=== PATIENT | female | born 1960 | race Caucasian/White ===

== ENCOUNTER → 2016-07-17 07:06 | Day surgery (SDC) | payer OTHER ==
--- NOTE | 2016-07-15 18:21 | HP ---
PREOPERATIVE HISTORY AND PHYSICAL: DATE OF ADMISSION: 07/17/16 This patient is scheduled for same-day surgery admission by Dr. Oliva on , 07/17/16. DATE OF PREOPERATIVE HISTORY AND PHYSICAL EXAMINATION: 07/15/16. ATTENDING SURGEON: Dr. Kin Oliva (dictated by Dominique Araya NP). CHIEF COMPLAINT: Left breast cancer. HISTORY OF PRESENT ILLNESS: The patient is a 55-year-old female referred to Dr. Oliva from Dr. Jack with an abnormal left mammogram that prompted a stereotactic biopsy that revealed invasive ductal adenocarcinoma. The patient denies any family history of breast cancer in her first-degree relatives, there is no family history of ovarian cancer, the patient has not had previous breast disease or breast biopsies. She is not on hormonal therapy; she denies any nipple discharge or pain in breast. Dr. Oliva examined the patient and discussed the findings on the pathology and discussed with her and her daughter the nature of breast cancer and the patient has also been referred to Dr. Sharee Sotomayor for consultation. Dr. Oliva has recommended mammo-guide needle localization, wide excision of the left breast cancer and sentinel lymph node biopsy as a same-day surgery procedure. Dr. Oliva described the nature of the surgical procedure, the rationale for the procedure, the relevant risks, benefits, and alternatives, and today, I reviewed the typical same-day hospitalization as well as the postoperative care and recovery. The patient has had a chance to ask questions and stated that she understands the information and is satisfied with the answers given to her questions. She will sign surgical consent on the day of surgery. PAST MEDICAL HISTORY: Generally healthy. No acute or chronic conditions. PAST SURGICAL HISTORY: Repair of bilateral rotator cuffs; laparoscopic appendectomy. OB HISTORY: 1, para 1. Last menstrual period started May 2016 and her periods are irregular. MEDICATIONS: 1. Omeprazole 10 mg p.r.n. acid indigestion. 2. Multivitamin occasionally. 3. Vitamin D3 2000 International Units daily. 4. Ibuprofen over the counter p.r.n. ALLERGIES: No known drug allergies, food, or latex allergies. FAMILY HISTORY: No first-degree relatives with breast cancer. No family history of ovarian cancer. Father had a history of bladder cancer. No known anesthesia reactions, bleeding tendencies, or clotting disorders. 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 She denies the use of other substances. REVIEW OF SYSTEMS: She denies any cardiac conditions or complaints, denies any history of deep vein thrombosis or pulmonary embolism. She denies any respiratory conditions or complaints other than seasonal allergies. She denies any previous anesthesia complications. She denies any gastrointestinal conditions or complaints. She denies any dysuria. She denies any bleeding tendencies and has never received a blood transfusion. PHYSICAL EXAMINATION GENERAL SURVEY: The patient is a 55-year-old female, well developed, well nourished, in no acute distress. VITAL SIGNS: Height 63 inches, weight 187 pounds, body mass index 33, blood pressure 122/78, pulse 74 and regular, respiratory rate 16, temperature 98.8 tympanic. HEENT: Benign. NECK: Supple. No cervical lymphadenopathy. No thyromegaly. No supraclavicular lymphadenopathy. BREASTS: Symmetrical without skin or nipple changes. No axillary adenopathy bilaterally. Right breast without discrete masses. Left breast without discrete masses. No infection at the site of the previous stereotactic biopsy. LUNGS: Breath sounds bilaterally clear and equal. HEART: Regular rate and rhythm. No murmurs or rubs appreciated. ABDOMEN: Active bowel sounds. Well-healed surgical scars status post laparoscopic appendectomy. Soft, nondistended, nontender throughout. No obvious masses, organomegaly, or evidence of umbilical hernia. PELVIC AND RECTAL: Exams done within the past month, not repeated. EXTREMITIES: Warm without edema or skin ulcerations. NEUROLOGIC: Alert and oriented x3. Steady gait. SKIN: Warm, dry, intact. IMPRESSION: Left breast cancer. PLAN: Same-day surgery admission to Dr. Oliva's service on , 07/17/16 , for mammo-guided needle localization, wide local excision, and sentinel lymph node biopsy, left breast cancer. DOMINIQUE ARAYA NP CC: Dr. [facility]; Dr. Yasmeen Jack; Dr. Sharee Sotomayor; Dr. Deangelo Patterson * [id number]/[facility] #: [id number] [facility]
[~2016-07-17 07:06] MED LIST: Acetaminop/Codeine 30 MG TAB* 1 TAB (300 MG/30 MG) PO PRN; Acetaminophen ADULT LIQ* 650 MG/20.3 ML UDC ONE; Acetaminophen TAB* 325 MG PO PRN; Buffered Lidocaine 1% SYR 3ML* 3 ML/SYR SYRINGE INTRADERM ONE; Buffered Lidocaine 1% SYR 3ML* 3 ML/SYR SYRINGE ONE; Bupivacaine 0.5% W/EPI SDV* 30 ML VIAL ONE; Dexamethasone IV* 4 MG/ML 1 ML (4 MG) ONE; Famotidine IV* 10 MG/ML 2 ML (20 mg) ONE; HYDROcodone/ACETAMIN 5-325 MG* 1 TAB PO PRN; HYDROmorphone INJ* 1 MG/ML CARPUJECT SYRINGE IV PRN; Ketorolac INJ* 30 MG/ML 1 ML VIAL ONE; Lidocaine 1% INJ* 10 MG/ML 30 ML SDV ONE; Lidocaine 2% MPF* 2 ML VIAL ONE; Lidocaine 2.5%/Prilocain 2.5%* 5 GM TUBE ONE; Midazolam* 1 MG/ML 2 ML VIAL (2 MG) ONE; NS 0.9% 1000 ML* 1,000 ML IV SCH; Ondansetron INJ* 2 MG/ML VIAL IV PRN; Ondansetron INJ* 2 MG/ML VIAL ONE; PROCHLORPERAZINE INJ 5 MG/ML 2 ML VIAL IV PRN; PROCHLORPERAZINE INJ 5 MG/ML 2 ML VIAL ONE; Propofol* 10 MG/ML 20 ML BTL IV PUSH ONE; ceFAZolin 2 GM PREMIX (*) 2 GM/50 ML BAG IVPB ONE; fentaNYL* 50 MCG/ML 2 ML VIAL (100 MCG VIAL) ONE
--- NOTE | 2016-07-17 09:45 | RAD ---
PROCEDURE: Mammographic needle/wire localization of the left breast PREOPERATIVE DIAGNOSIS: Breast cancer POSTOPERATIVE DIAGNOSIS: Same COMPARISONS: June 25, 2016 NUCLEAR LOGGING ENGINEER: Lara Howe MD ANESTHESIA: Local anesthesia with 1% lidocaine without epinephrine FLUOROSCOPY TIME: None CONTRAST: None PROCEDURAL NARRATIVE: The procedure was explained to the patient who indicated understanding. Written and verbal informed consent was obtained. An opportunity was given to ask and answer questions. A timeout was performed. The patient was prepped and draped in the usual sterile fashion. Using mammographic guidance, a needle/wire localization system was advanced to the target lesion in the left breast. Once position was confirmed, the needle was removed using pin pull technique. Post localization mammography was performed. The wound was dressed and the wire was secured. FINDINGS: The wire is noted in close proximity to the biopsy marker clip in the left upper outer breast. SPECIMENS: Pending COMPLICATIONS: None DISPOSITION: The patient tolerated the procedure well, without complications during or immediately following the procedure. The patient was sent to the nuclear medicine suite in stable condition. IMPRESSION: TECHNICALLY SUCCESSFUL, UNCOMPLICATED, MAMMOGRAPHICALLY GUIDED WIRE LOCALIZATION OF THE LEFT BREAST FOR SURGICAL EXCISION. HISTOLOGY IS PENDING
--- NOTE | 2016-07-17 10:36 | RAD ---
HISTORY: Breast cancer. Lymphoscintigraphy of the breast for the purposes of sentinel node identification. COMPARISONS: None TECHNIQUE: Previous imaging was reviewed. The procedure was explained to the patient who indicated that she understood. Written and verbal informed consent was obtained, with an opportunity to ask and answer questions. The breast was marked. A timeout was performed. The patient was prepped and draped in the usual sterile fashion. Technetium 99m sulfur colloid was administered in a subdermal fashion in 4 divided aliquots in a 180 degree arc along the areolar margin of the left breast, centered on the position of the primary breast lesion. Cine and planar imaging was performed. The first appearing axillary node was identified with the overlying skin marked. DOSE: Technetium 99m sulfur colloid, 0.317 millicuries, injected at 9:25 AM on July 17, 2016 FINDINGS: Uptake is noted within a left axillary lymph node. The site of uptake is marked on the overlying skin. OTHER: None IMPRESSION: TECHNICALLY SUCCESSFUL, UNCOMPLICATED, LYMPHOSCINTIGRAPHY OF THE LEFT BREAST FOR THE PURPOSES OF SENTINEL NODE LOCALIZATION.
--- NOTE | 2016-07-17 15:33 | PN ---
Progress Note - Progress Note Note: Brief Operative Note: Preop Dx.: Left breast cancer POstop DX: same Procedure: Wide excision Left Breast cancer (after needle-loc); sentinel lymph node bx Anesthesia: GET Surgeon: Hazel Asst: JORGE Robbins EBL: 75 ml Fluids: 600 ml crystalloid drains: none Findings: dictated
[2016-07-17] MEDS: fentaNYL* 50 MCG/ML 2 ML VIAL (100 MCG VIAL) IV PRN ×4 (16:04→16:38)
[2016-07-17 19:16] VITALS: BP 105/60
--- NOTE | 2016-07-18 08:19 | OP ---
DATE OF OPERATION: 07/17/16 [facility] DATE OF : 64 SURGEON: Kin Oliva MD DETENTION ATTENDANT: Teresita Robbins NP ANESTHESIOLOGIST: Dr. Wright. ANESTHESIA: General anesthetic, local infiltration. PRE-OP DIAGNOSIS: Left breast cancer. POST-OP DIAGNOSIS: Left breast cancer. OPERATIVE PROCEDURE: Needle localizing wide excision of left breast cancer with Soldier node biopsy. DESCRIPTION OF PROCEDURE: The patient was supine on the operating room table. After adequate general anesthetic, compression stocking, Jasmeet-Hugger warmer, and intravenous antibiotics, local anesthetic was administered. An approximately 5 cm incision was created in the region of the guidewire. A piece of breast tissue, approximately 4 x 4 x 5 cm, was removed, marked with the usual marking sutures, and sent to x- ray. There appeared to be firm, nodular material at the medial edge, so additional medial tissue was removed and marked with a suture showing the true medial margin, and this was sent fresh to pathology as well. Up in the axilla, a solitary Soldier node was identified and this had a count to about 700. There was some additional tissue adherent on the surface of this which I took off. It was not hot; and, therefore, I labeled it additional axillary tissue. Hemostasis was obtained using suture and cautery as appropriate. Irrigation was carried out. Hemostasis was good. Incision was closed with 3-0 and 5-0 Polysorb followed by Steri-Strips. She tolerated the procedure well and was brought to recovery room. There were no complications. No drains. Pathologic specimens as enumerated above. Sponge and instrument counts correct. Estimated blood loss 50 mL. CC: Kin Oliva MD; Dr. Jack; Dr. Sotomayor; Dr. Patterson * [id number]/[facility] #: [id number] [facility]
== END | disposition home or self-care (01) ==
LOC: OR 07:06
PROVIDERS: ATTEND Surgery
DX: C50.912 Malignant neoplasm of unspecified site of left female breast (principal)
CPT/HCPCS: 78195; 88307; 88341; 88342; A9270-GY; A9541; J0690; J0780; J1100; J1885; J2250; J2405; J2704; J3010

== ENCOUNTER 2016-12-01 10:07 | Emergency (ER) | payer OTHER ==
[2016-12-01 11:07] VITALS: BP 130/71
--- NOTE | 2016-12-01 12:15 | UC ---
Throat Pain/Nasal Sid HPI - HPI Summary HPI Summary: complaint of nasal congestion and cough appro6 days agoi extremely sore throat and fatigue coughing up green sputum entire head hurts bilateral ear pain sinus pressure in her face which has worsened the last 3 days denies fever and chills took some ibuprofen, mucinex and theraflu with some relief - History of Current Complaint Chief Complaint: UCRespiratory Stated Complaint: URI Time Seen by Provider: 12/01/16 12:06 Hx Obtained From: Patient - Allergies/Home Medications Allergies/Adverse Reactions: Allergies Allergy/AdvReac Type Severity Reaction Status Date / Time No Known Allergies Allergy Verified 07/17/16 07:50 PMH/Surg Hx/FS Hx/Imm Hx Previously Healthy: Yes Endocrine History Of: Denies: Diabetes, Thyroid Disease Cardiovascular History Of: Denies: Cardiac Disorders, Hypertension, Pacemaker/ICD Respiratory History Of: Denies: COPD, Asthma GI/ History Of: Denies: Ulcer Cancer History Of: Reports: Breast Cancer - Surgical History Surgical History: Yes Surgery Procedure, Year, and Place: 2002 & 2003 BILATERAL RTC REPAIR [facility]. 1996 [facility] - Family History Known Family History: Negative: Cardiac Disease, Hypertension, Diabetes - Social History Occupation: Employed Full-time Lives: With Family Alcohol Use: Daily Alcohol Amount: 2 GLASSES/DAY Substance Use Type: None Smoking Status (MU): Former Smoker Type: Cigarettes Amount Used/How Often: FEW CIGS IN COLLEGE Length of Time of Smoking/Using Tobacco: LESS THEN 2 YRS, OCCASSIONAL Have You Smoked in the Last Year: No Review of Systems Constitutional: Negative Skin: Negative Eyes: Negative ENT: Sore Throat, Ear Ache, Nasal Discharge Respiratory: Cough Cardiovascular: Negative Gastrointestinal: Negative Genitourinary: Negative Motor: Negative Neurovascular: Negative Musculoskeletal: Negative Neurological: Headache Psychological: Negative All Other Systems Reviewed And Are Negative: Yes Physical Exam Triage Information Reviewed: Yes Appearance: No Pain Distress, Well-Nourished Vital Signs: Initial Vital Signs Temp 98.8 F 12/01/16 11:02 Pulse 77 12/01/16 11:02 Resp 18 12/01/16 11:02 BP 130/71 12/01/16 11:02 Pulse Ox 100 12/01/16 11:02 Vital Signs Reviewed: Yes Eyes: Positive: Conjunctiva Clear ENT: Positive: Pharyngeal erythema, Nasal congestion, Nasal drainage, TM bulging - right, TM red - right, Tonsillar swelling, Tonsillar exudate Dental: Positive: Cervical Lymphadenopathy Respiratory: Positive: Lungs clear, Normal breath sounds, No respiratory distress, No accessory muscle use Cardiovascular: Positive: RRR, No Murmur, Pulses Normal Abdomen Description: Positive: Nontender, Soft Bowel Sounds: Positive: Present Musculoskeletal: Positive: No Edema Neurological: Positive: Alert Psychological Exam: Normal Skin Exam: Normal Throat Pain/Nasal Course/Dx - Differential Dx/Diagnosis Differential Diagnosis/HQI/PQRI: Otitis Media, Sinusitis, URI Provider Diagnoses: sinusitis, otitis media right Discharge - Discharge Plan Condition: Stable Disposition: HOME Prescriptions: Amoxicillin/Clavulanate TAB* [Augmentin TAB 875*] 875 mg PO BID #20 tab Patient Education Materials: Otitis Media (ED), Sinusitis (ED) Referrals: Kylie Farrell NP [Primary Care Provider] - Additional Instructions: Please start antibiotic as directed Increase fluids and rest Take acetaminophen or ibuprofen for fever or pain Please review your discharge instructions. If your symptoms do not improve please call your primary care provider or return to urgent care. Your blood pressure is pre-hypertensive reading. Please contact your primary care provider within 1 day -4 weeks for further evaluation
== END 2016-12-01 12:25 | disposition home or self-care (01) ==
LOC: UCEAST 10:07
DX: J32.9 Chronic sinusitis, unspecified (principal); H66.91 Otitis media, unspecified, right ear; Z85.3 Personal history of malignant neoplasm of breast; Z87.891 Personal history of nicotine dependence
CPT/HCPCS: 99212; G0463

== ENCOUNTER 2018-07-31 14:40 | Emergency (ER) | payer OTHER ==
[2018-07-31 14:58] VITALS: BP 114/74
--- NOTE | 2018-07-31 15:15 | UC ---
Throat Pain/Nasal Sid HPI - HPI Summary HPI Summary: sinus pain and frontal headache for 1 week, getting worse today -nasal discharge dark thick yellow - History of Current Complaint Chief Complaint: UCGeneralIllness Stated Complaint: HEADACHE,CONGESTED Time Seen by Provider: 07/31/18 15:01 Hx Obtained From: Patient Hx Last Menstrual Period: 07/30/18 ?: No Onset/Duration: Gradual Onset Severity: Worse Since: - yesterday Pain Intensity: 8 Cough: Nonproductive Associated Signs & Symptoms: Positive: Sinus Discomfort, Nasal Discharge - Allergies/Home Medications Allergies/Adverse Reactions: Allergies Allergy/AdvReac Type Severity Reaction Status Date / Time No Known Allergies Allergy Verified 07/31/18 14:51 Home Medications: Home Medications Cholecalciferol (Vitamin D3) [Vitamin D3] 1,000 unit PO DAILY 07/31/18 [History Confirmed 07/31/18] PMH/Surg Hx/FS Hx/Imm Hx Previously Healthy: Yes - Surgical History Surgical History: Yes Surgery Procedure, Year, and Place: 2002 & 2003 BILATERAL RTC REPAIR SHOULDERS [facility]. 1996 [facility]. 2017 L lumpectomy - Family History Known Family History: Negative: Cardiac Disease, Hypertension, Diabetes - Social History Occupation: Employed Full-time Lives: With Family Alcohol Use: Occasionally Alcohol Amount: 2 GLASSES/DAY Substance Use Type: None Smoking Status (MU): Never Smoked Tobacco Type: Cigarettes Amount Used/How Often: FEW CIGS IN COLLEGE Length of Time of Smoking/Using Tobacco: LESS THEN 2 YRS, OCCASSIONAL Have You Smoked in the Last Year: No Review of Systems All Other Systems Reviewed And Are Negative: Yes Constitutional: Positive: Negative Skin: Positive: Negative ENT: Positive: Sinus Congestion, Sinus Pain/Tenderness Respiratory: Positive: Negative Cardiovascular: Positive: Negative Neurological: Positive: Negative Is Patient Immunocompromised?: No Physical Exam Triage Information Reviewed: Yes Appearance: Well-Appearing, No Pain Distress, Well-Nourished Vital Signs: Initial Vital Signs Temp 98.3 F 07/31/18 14:53 Pulse 61 07/31/18 14:53 Resp 18 07/31/18 14:53 BP 114/74 07/31/18 14:53 Pulse Ox 97 07/31/18 14:53 Vital Signs Reviewed: Yes Eyes: Positive: Conjunctiva Clear ENT: Positive: Pharynx normal, Nasal congestion, Sinus tenderness Neck exam: Normal Neck: Positive: No Lymphadenopathy Respiratory Exam: Normal Respiratory: Positive: Lungs clear Cardiovascular Exam: Normal Cardiovascular: Positive: RRR Neurological Exam: Normal Psychological Exam: Normal Skin Exam: Normal Throat Pain/Nasal Course/Dx - Differential Dx/Diagnosis Differential Diagnosis/HQI/PQRI: Influenza, Sinusitis, Tonsillitis, URI Provider Diagnosis: Sinusitis Discharge - Sign-Out/Discharge Documenting (check all that apply): Patient Departure All imaging exams completed and their final reports reviewed: No Studies - Discharge Plan Condition: Good Disposition: HOME Prescriptions: Azithromycin TAB* [Zithromax TAB (Z-AUNG) 250 mg #6 tabs] 2 tab PO .TODAY, THEN 1 DAILY #1 aung Fluconazole 150 MG (NF) [Diflucan 150 mg (NF)] 150 mg PO ONCE #1 tab Patient Education Materials: Sinusitis (ED) Referrals: Kylie Farrell, BACK MAKER [Primary Care Provider] - 3 Days (if no better) Additional Instructions: drink plenty of fluids start zithromax antibiotic try sudafed over the counter for nasal congestion - Billing Disposition and Condition Condition: GOOD Disposition: Home
== END 2018-07-31 15:30 | disposition home or self-care (01) ==
LOC: UCEAST 14:40
DX: J32.9 Chronic sinusitis, unspecified (principal); Z87.891 Personal history of nicotine dependence
CPT/HCPCS: 99212; G0463

== ENCOUNTER 2019-02-21 12:32 | Emergency (ER) | payer OTHER ==
--- OUTSIDE RECORDS SUMMARY | 2019-02-21 12:37 | XMS REPORT | Continuity of Care Document ---
:1960 External Reference #:[id number] Author Name Mary Freed O.D. Address [address] [place] [address] Care Team Providers Name Role Phone Kylie Farrell NP Primary Care Physician Unavailable Payers Date Identification Numbers Payment Provider Subscriber Policy Number: [id number] [employer] Ppo/Pos/Epo/Nap Regina Ornelas Group Number: [id number] [address] PayID: [id number] [place] [address] Problems Active Problems Provider Date Environmental allergy Onset: Gastritis Onset: Malignant neoplasm of female breast Onset: Foreign body in conjunctival sac, right Mary Freed O.D. Onset: 01/31 eye, initial encounter Regular astigmatism Angélica Reyes O.D. Onset: 01/04/2019 Presbyopia Angélica Reyes O.D. Onset: 07/10/2016 Myopia Angélica Reyes O.D. Onset: 07/10/2016 Retinal lattice degeneration Angélica Reyes O.D. 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 ETOH Use Consumes 2 glasses of wine per day Tobacco Use Start: Unknown Patient has never smoked Recreational Drug Use Denies Drug Use Smoking Status Reviewed: 01/31/19 Patient has never smoked Allergies, Adverse Reactions, Alerts Description No Known Drug Allergies Medications Active Medications SIG Qnty Indications Ordering Provider Date Polytrim 1 drop three 10ml T15.11xA Mary Hall 01/31/2019 88560-4.1Unit/ML-% times a day in Sharla Freed Solution right eye for 1 week Omeprazole Unknown 10mg Capsules DR Multivitamins Unknown Capsules Vitamin D3 Unknown 5000Unit Capsules Ibuprofen 2 capsules 3 Unknown 200mg Capsules times daily as needed [facility] Lubricant Eye Drops Unknown PF 0.5% Solution Procedures Date Code Description Status 01/04/2019 34256 Determination Of Refractive State Completed 01/04/2019 09597 Est Patient Comprehensive Exam Completed 07/10/2016 88114 Determination Of Refractive State Completed 07/10/2016 01521 Est Patient Comprehensive Exam Completed 02/21/2014 55622 Determination Of Refractive State Completed 02/21/2014 67480 New Patient Comprehensive Exam Completed Plan of Treatment 01/31/2019 - Mary Freed O.D.T15.11xA Foreign body in conjunctival sac, right eye, initial encounterNew Medication:Polytrim 35031-3.1 Unit/ML-% - 1 drop three times a day in right eye for 1 weekComments:use drops 3xday for 1 week right eyeFollow up:prn
[2019-02-21 13:01] VITALS: BP 130/80
== END 2019-02-21 13:26 | disposition left against medical advice (07) ==
LOC: UCEAST 12:32
DX: Z53.8 Procedure and treatment not carried out for other reasons (principal)

== ENCOUNTER 2019-04-16 17:03 | Emergency (ER) | payer OTHER ==
--- OUTSIDE RECORDS SUMMARY | 2019-04-16 17:10 | XMS REPORT | Continuity of Care Document ---
:1960 External Reference #:[id number] Author Name Kylie Farrell, N.P. (transmitted by agent of provider Fartun Machado) Address [address], [place] [address] Care Team Providers Name Role Phone Anjana Chan MD - Internal Medicine Care Team Information Instructional Material Director [phone] Yasmeen Jack MD - Internal Care Team Information Instructional Material Director Veronica Pandey MD - Care Team Information Instructional Material Director [phone] Dermatology Problems Description No Active Problems Social History Type Date Description Comments Sex Unknown ETOH Use Currently consumes 1 - 2 glasses of alcohol wine 5 days weekly Tobacco Use Start: Unknown End: Patient is a former "experimented" back Unknown smoker in college. Smoking Status Reviewed: 04/01/19 Patient is a former "experimented" back smoker in college. Exercise Exercises sporadically Type/Frequency Allergies, Adverse Reactions, Alerts Description No Known Drug Allergies Medications Active Medications SIG Qnty Indications Ordering Date Provider Ciprofloxacin HCL one by mouth 20tabs R10.84 Kylie Farrell, 03/25/2019 500mg twice a day x 10 N.P. Tablets days Ondansetron HCL one by mouth 30tabs R10.84 Kylie Varnegrita, 03/25/2019 4mg every 8 hours as N.P. Tablets needed for nausea Diflucan 1tabs Unknown 07/31/2018 150mg Tablets Biotin Gummies take 1 daily 1units Kylie Farrell, 12/23/2016 Liquid N.P. Vitamin C Gummie 30units Kylie Farrell, 12/23/2016 120mg N.P. Chewtabs Omeprazole 1 by mouth every 30caps K29.00 Kylie Farrell, 05/15/2015 10mg Capsules day as needed N.P. DR Decker For Her on occasion 90tabs Unknown Tablets Ibuprofen as needed Unknown 200mg Capsules Benadryl Allergy as directed Unknown 25mg Capsules Claritin 1 by mouth every Unknown 10mg Capsules day Vitamin D-1000 Maximum 1 by mouth every Unknown Strength day 4000 Tablets Vitamin B12 1 by mouth every Unknown 500mcg day Tablets History Medications Metronidazole one tablet by 21tabs R10.84 Kylie Jami, 03/25/2019 - 500mg mouth 3 times N.P. 04/01/2019 Tablets daily for 7 days Immunizations CPT Code Status Date Vaccine Lot # [id number] Given 04/27/2018 Influenza Virus Vaccine, Quadrivalent, Split, Preservative Free [id number] Given 08/03/2017 Tdap - Tetanus/Diptheria/Acellular Pertussis [id number] Vital Signs Date Vital Result Comment 04/01/2019 10:16am Height 63.25 inches 5'3.25" Weight 202.00 lb Heart Rate 57 /min BP Systolic Sitting 113 mmHg BP Diastolic Sitting 77 mmHg BMI (Body Mass Index) 35.5 kg/m2 03/25/2019 3:54pm Height 63.25 inches 5'3.25" Weight 203.25 lb Heart Rate 75 /min BP Systolic 113 mmHg BP Diastolic 76 mmHg Body Temperature 97.8 F O2 % BldC Oximetry 98 % BMI (Body Mass Index) 35.7 kg/m2 Results Test Date Facility Test Result H/L Range Note Laboratory test 12/17/2018 [facility] Vitamin D 49.0 ng/mL Normal 20-[address] [place] [address] [phone] 1 Total 25-Hydroxyvitamin D2 and D3 (25-OH-VitD) <10 ng/mL (severe deficiency) 10-19 ng/mL (mild to moderate deficiency) 20-50 ng/mL (optimum levels) 51-80 ng/mL (increased risk of hypercalciuria) >80 ng/mL (toxicity possible) Procedures Date Code Description Status 09/30/2018 [id number] Mammogram Completed 04/01/2018 [id number] Mammogram Completed 09/11/2017 [id number] Mammogram Completed 03/06/2017 [id number] Mammogram Completed 07/17/2016 [id number] Mammogram Completed 06/25/2016 [id number] Mammogram Completed 06/20/2016 [id number] Mammogram Completed 01/26/2015 [id number] Mammogram Completed 03/13/2014 [id number] Colonoscopy Completed 10/19/2012 [id number] Mammogram Completed Medical Devices Description No Information Available Encounters Type Date Location Provider Dx Diagnosis Office Visit 03/25/2019 [facility] Internal Kylie Farrell, R10.84 [facility] Assessments Date Code Description Provider 04/01/2019 R10.84 Generalized abdominal pain Kylie Farrell N.P. 03/25/2019 R10.84 Generalized abdominal pain Kylie Farrell N.Christiane. Plan of Treatment Future Appointment(s):08/26/2019 2:20 pm - Kylie Farrell N.P. at [facility] Internal Medicine - [facility]04/01/2019 - Kylie Farrell N.P.R10.84 Generalized abdominal painComments:Your diverticulitis is improving. Finish your antibiotics.I am ordering a complete blood count and Ihave give you stool cards to screen for blood in your stools. I will contact you with your results.Start taking Floraster, a probiotic for intestinal health. Functional Status Description No Information Available Mental Status Description No Information Available Referrals Description No Information Available
--- OUTSIDE RECORDS SUMMARY | 2019-04-16 17:10 | XMS REPORT | Continuity of Care Document ---
:1960 External Reference #:[id number] Author Name Kylie Farrell, N.P. (transmitted by agent of provider Karina Lira) Address [address], [place] [address] Care Team Providers Name Role Phone Anjana Chan MD - Internal Medicine Care Team Information Still Cleaner [phone] Yasmeen Jack MD - Internal Care Team Information Still Cleaner Veronica Pandey MD - Care Team Information Still Cleaner [phone] Dermatology Problems Description No Active Problems Social History Type Date Description Comments Sex Unknown ETOH Use Currently consumes 1 - 2 glasses of alcohol wine 5 days weekly Tobacco Use Start: Unknown End: Patient is a former "experimented" back Unknown smoker in college. Smoking Status Reviewed: 03/25/19 Patient is a former "experimented" back smoker in college. Exercise Exercises sporadically Type/Frequency Allergies, Adverse Reactions, Alerts Description No Known Drug Allergies Medications Active Medications SIG Qnty Indications Ordering Date Provider Ciprofloxacin HCL one by mouth 20tabs R10.84 Kylie Varn, 03/25/2019 500mg twice a day x 10 N.P. Tablets days Metronidazole one tablet by 21tabs R10.84 Kylie Varn, 03/25/2019 500mg mouth 3 times N.P. Tablets daily for 7 days Ondansetron HCL one by mouth 30tabs R10.84 Kylie Varn, 03/25/2019 4mg every 8 hours as N.P. Tablets needed for nausea Diflucan 1tabs Unknown 07/31/2018 150mg Tablets Biotin Gummies take 1 daily 1units Kylie Libbyn, 12/23/2016 Liquid N.P. Vitamin C Gummie 30units Kylie Varn, 12/23/2016 120mg N.P. Chewtabs Omeprazole 1 by mouth every 30caps K29.00 Kylie Souzanegrita, 05/15/2015 10mg Capsules day as needed N.P. DR Decker For Her on occasion 90tabs Unknown Tablets Ibuprofen as needed Unknown 200mg Capsules Benadryl Allergy as directed Unknown 25mg Capsules Claritin 1 by mouth every Unknown 10mg Capsules day Vitamin D-1000 Maximum 1 by mouth every Unknown Strength day 4000 Tablets Vitamin B12 1 by mouth every Unknown 500mcg day Tablets Immunizations CPT Code Status Date Vaccine Lot # [id number] Given 04/27/2018 Influenza Virus Vaccine, Quadrivalent, Split, Preservative Free [id number] Given 08/03/2017 Tdap - Tetanus/Diptheria/Acellular Pertussis [id number] Vital Signs Date Vital Result Comment 03/25/2019 3:54pm Height 63.25 inches 5'3.25" Weight 203.25 lb Heart Rate 75 /min BP Systolic 113 mmHg BP Diastolic 76 mmHg Body Temperature 97.8 F O2 % BldC Oximetry 98 % BMI (Body Mass Index) 35.7 kg/m2 09/01/2018 2:53pm Height 63.25 inches 5'3.25" Weight 195.00 lb Heart Rate 72 /min BP Systolic 116 mmHg BP Diastolic 74 mmHg Body Temperature 98.9 F Pain Level 7 BMI (Body Mass Index) 34.3 kg/m2 Results Test Date Facility Test Result H/L Range Note Laboratory test 12/17/2018 [facility] Vitamin D 49.0 ng/mL Normal 20-[address] [place] [address] [phone] 1 Total 25-Hydroxyvitamin D2 and D3 (25-OH-VitD) <10 ng/mL (severe deficiency) 10-19 ng/mL (mild to moderate deficiency) 20-50 ng/mL (optimum levels) 51-80 ng/mL (increased risk of hypercalciuria) >80 ng/mL (toxicity possible) Procedures Date Code Description Status 09/30/2018 [id number] Mammogram Completed 04/01/2018 [id number] Mammogram Completed 09/11/2017 [id number] Mammogram Completed 03/06/2017 [id number] Mammogram Completed 07/17/2016 [id number] Mammogram Completed 06/25/2016 [id number] Mammogram Completed 06/20/2016 [id number] Mammogram Completed 01/26/2015 [id number] Mammogram Completed 03/13/2014 [id number] Colonoscopy Completed 10/19/2012 [id number] Mammogram Completed Medical Devices Description No Information Available Encounters Description No Information Available Assessments Date Code Description Provider 03/25/2019 R10.84 Generalized abdominal pain Kylie Farrell N.P. Plan of Treatment Future Appointment(s):08/26/2019 2:20 pm - Kylie Farrell N.P. at [facility] Internal Medicine - [facility]03/25/2019 - Kylie Farrell N.P.R10.84 Generalized abdominal painNew Medication:Ciprofloxacin HCL 500 mg - one by mouth twice a day x 10 daysMetronidazole 500 mg - one tablet by mouth 3 times daily for 7 daysOndansetron HCL 4 mg - one by mouth every 8 hours as needed for nauseaComments:Your symptoms are consistent with diverticulitis. I have prescribed Cipro 500 mg, take this twice daily for 10 days. In addition I have prescribed another antibiotic Metronidazole 500 mg, take 1 tablet3 times daily for 7 days.stick to a bland diet. If you develop nausea I have prescribed Ondansetron for you to take as needed. Functional Status Description No Information Available Mental Status Description No Information Available Referrals Description No Information Available
[2019-04-16 17:23] VITALS: BP 118/72
--- NOTE | 2019-04-16 17:35 | UC ---
Skin Complaint HPI - HPI Summary HPI Summary: Pt presents with c/o tick on right side flank. Pt believes the tick attached 3 days ago. - History of Current Complaint Chief Complaint: UCSkin Time Seen by Provider: 04/16/19 17:18 Stated Complaint: TICK Hx Obtained From: Patient Hx Last Menstrual Period: menopause ?: No Onset/Duration: Sudden Onset, Lasting Days, Still Present Skin Exposure Onset/Duration: Days Ago Timing: Constant Onset Severity: Mild Current Severity: Mild Pain Intensity: 0 Location: Discrete - right side flank, Character: Redness Aggravating Factor(s): Touch Alleviating Factor(s): Unknown Associated Signs & Symptoms: Positive: Tenderness Related History: Insect Bite/Sting - tick bite, with tick still attached - Allergy/Home Medications Allergies/Adverse Reactions: Allergies Allergy/AdvReac Type Severity Reaction Status Date / Time No Known Allergies Allergy Verified 04/16/19 17:26 PMH/Surg Hx/FS Hx/Imm Hx Previously Healthy: Yes - Surgical History Surgical History: Yes Surgery Procedure, Year, and Place: 2002 & 2003 BILATERAL RTC REPAIR SHOULDERS [facility]. 1996 APPY. 2017 L lumpectomy - Family History Known Family History: Negative: Cardiac Disease, Hypertension, Diabetes - Social History Occupation: Employed Full-time Lives: With Family Alcohol Use: Weekly Alcohol Amount: 2 GLASSES/DAY Substance Use Type: None Smoking Status (MU): Never Smoked Tobacco Type: Cigarettes Amount Used/How Often: FEW CIGS IN COLLEGE Length of Time of Smoking/Using Tobacco: LESS THEN 2 YRS, OCCASSIONAL Have You Smoked in the Last Year: No - Immunization History Vaccination Up to Date: Yes Review of Systems All Other Systems Reviewed And Are Negative: Yes Constitutional: Positive: Negative Skin: Positive: Other - tick bite, tick still attached Eyes: Positive: Negative ENT: Positive: Negative Respiratory: Positive: Negative Cardiovascular: Positive: Negative Gastrointestinal: Positive: Negative Genitourinary: Positive: Negative Motor: Positive: Negative Neurovascular: Positive: Negative Musculoskeletal: Positive: Negative Neurological: Positive: Negative Psychological: Positive: Negative Is Patient Immunocompromised?: No Physical Exam Triage Information Reviewed: Yes Appearance: Well-Appearing Vital Signs: Initial Vital Signs Temp 97.8 F 04/16/19 17:14 Pulse 68 04/16/19 17:14 Resp 16 04/16/19 17:14 BP 118/72 04/16/19 17:14 Pulse Ox 97 04/16/19 17:14 Vital Signs Reviewed: Yes Eye Exam: Normal ENT Exam: Normal ENT: Positive: Hearing grossly normal Dental Exam: Normal Neck exam: Normal Respiratory: Positive: No respiratory distress Musculoskeletal Exam: Normal Neurological Exam: Normal Psychological Exam: Normal Skin Exam: Other - tick attached and alive, removed with tick twist. Course/Dx - Differential Diagnoses - Skin Complaint Differential Diagnoses: Tick Born Illness - Diagnoses Provider Diagnosis: Tick bite of back, Tick bite with subsequent removal of tick Discharge ED - Sign-Out/Discharge Documenting (check all that apply): Patient Departure All imaging exams completed and their final reports reviewed: No Studies - Discharge Plan Condition: Stable Disposition: HOME Prescriptions: DOXYcycline CAP(*) [DOXYcycline 100MG CAP(*)] 100 mg PO Q12H #20 cap Fluconazole 150 MG TAB* [Diflucan 150 MG TAB*] 150 mg PO UC ONCE #2 tablet Patient Education Materials: Tick Bite (ED) Referrals: Kylie Farrell NP [Primary Care Provider] - If Needed - Billing Disposition and Condition Condition: STABLE Disposition: Home
== END 2019-04-16 17:45 | disposition home or self-care (01) ==
LOC: UCEAST 17:03
DX: S30.861A Insect bite (nonvenomous) of abdominal wall, initial encounter (principal); W57.XXXA Bitten or stung by nonvenomous insect and other nonvenomous arthropods, initial encounter; Y92.9 Unspecified place or not applicable
CPT/HCPCS: 99212; G0463